=== PATIENT | male | born 1930 | race Caucasian/White ===

== ENCOUNTER 2016-03-08 11:25 | Observation (INO) ==
--- NOTE | 2016-03-08 11:44 | Emergency Department Note ---
Abdominal Pain HPI - General Chief Complaint: Abdominal Pain Stated Complaint: Lower abd pain, Known Hernia Time Seen by Provider: 03/08/16 11:39 Source: patient, other Mode of arrival: ambulatory - History of Present Illness HPI Narrative: This patient claims he said an incarcerated right angle hernia since May. He had a recent stroke and is on Plavix and has been told he can't have surgery. Over the last 3 days he started vomiting. Continues to have pain and swelling in the right inguinal region. Onset (ago): day(s) Consistency: constant Location: RLQ Severity: moderate Quality: cramping Radiation: none - Related Data Home Medications Medication Instructions Recorded Confirmed Acetaminophen [Tylenol] 1,000 mg PO BID 02/27/15 02/27/15 Cholecalciferol (Vitamin D3) 4,000 unit PO DAILY 02/27/15 02/27/15 [Vitamin D3] Cilostazol [Pletal] 100 mg PO BIDAC 02/27/15 02/27/15 Docusate Sodium [Colace] 100 mg PO DAILY 02/27/15 02/27/15 Famotidine [Pepcid] 20 mg PO DAILY 02/27/15 02/27/15 Hydrochlorothiazide 50 mg PO DAILY 02/27/15 02/27/15 Losartan Potassium [Cozaar] 100 mg PO DAILY 02/27/15 02/27/15 Lovastatin 80 mg PO HS 02/27/15 02/27/15 Melatonin [Melatin] 3 mg PO HS 02/27/15 02/27/15 Metoprolol Tartrate [Lopressor] 25 mg PO DAILY 02/27/15 02/27/15 Multivitamin [Multi-Day Vitamins] 1 each PO DAILY 02/27/15 02/27/15 Mv-Mn/FA/Vit K1/Lycop/Lut/Zeax 1 each PO DAILY 02/27/15 02/27/15 [Ocuvite Eye + Multi Tablet] Temazepam [Restoril] 30 mg PO HS 02/27/15 02/27/15 glipiZIDE [Glucotrol Xl] 10 mg PO QAMAC 02/27/15 02/27/15 Previous Rx's Medication Instructions Recorded Clopidogrel [Plavix] 75 mg PO DAILY #30 tab 03/02/15 Allergies Allergy/AdvReac Type Severity Reaction Status Date / Time codeine AdvReac Intermediate Psychosis Verified 03/08/16 11:33 morphine AdvReac Intermediate Psychosis Verified 03/08/16 11:33 Review of Systems Constitutional: Denies: fever, chills Eyes: Denies: eye pain ENT ED: Denies: ear pain Cardiovascular: Denies: chest pain Respiratory: Denies: cough Gastrointestinal: Reports: abdominal pain, nausea, vomiting. Denies: diarrhea Genitourinary: Denies: urgency Musculoskeletal: Denies: back pain Integumentary: Denies: rash Neurological: Denies: headache Psychiatric: Denies: anxiety Abdominal Pain PMH - Past Medical History Medical history: Reports: arthritis, coronary artery disease, CVA, diabetes, other (apnea BiPAP dependent) Surgical history ED: Reports: cataract, coronary bypass (CABG), herniorrhaphy, hip replacement - Social History Alcohol use: Reports: Rarely Drug use: Reports: none Physical Exam - General Limitations: no limitations General appearance: alert - Head Head exam: atraumatic - Eye Eye exam: Present: normal appearance - ENT ENT exam: normal exam - Neck Neck exam: Present: normal inspection - Chest Chest inspection: Present: normal inspection - Respiratory Respiratory exam: Present: normal lung sounds bilaterally - Cardiovascular Cardiovascular exam: Present: regular rate, normal rhythm, normal heart sounds - Abdominal Exam Abdominal exam: Present: soft, tenderness, hernia (incarcerated right inguinal hernia). Absent: distention, guarding, rebound, rigidity Abdominal tenderness: Present: RLQ - Rectal Exam Rectal exam: Present: deferred - Neurological Exam Neurological exam: Present: alert - Psychiatric Psychiatric exam: Present: normal affect - Skin Skin exam: Present: warm, dry Course Vital Signs Temperature 97.9 F 03/08/16 11:26 Pulse Rate 91 H 03/08/16 11:26 Respiratory Rate 16 03/08/16 11:26 Blood Pressure 112/69 03/08/16 11:26 Pulse Oximetry (%) 100 03/08/16 11:26 Temperature 97.9 F 03/08/16 11:26 Pulse Rate 61 03/08/16 13:57 Respiratory Rate 18 03/08/16 13:57 Blood Pressure 119/54 03/08/16 13:57 Pulse Oximetry (%) 96 03/08/16 13:57 Abdominal Pain - Lab Data Lab results reviewed: Yes I reviewed the patient's lab results. Result diagrams: 03/08/16 12:04 03/08/16 12:04 Lab Results 03/08/16 03/08/16 Range/Units 12:04 12:04 WBC 9.8 (4.5-11.0) K/mcL RBC 4.26 L (4.50-5.90) M/mcL Hgb 13.1 L (13.5-16.5) g/dL Hct 40.0 L (41.0-55.0) % MCV 93.8 (80.0-100.0) fL MCH 30.6 (26.0-34.0) pg MCHC 32.6 (31.0-36.0) g/dL RDW 14.2 (11.5-14.5) % Plt Count 311 (140-440) K/mcL MPV 7.9 (7.4-10.4) fL Gran % 76.0 (38.0-78.0) % Lymph % (Auto) 14.7 L (15.5-49.0) % [place] % (Auto) 7.1 (1.0-9.0) % Eos % (Auto) 1.8 (0.0-7.0) % Baso % (Auto) 0.4 (0.0-2.0) % Gran # 7.4 (1.8-8.0) K/mcL Lymph # 1.4 L (1.5-4.8) K/mcL [place] # 0.7 (0.1-0.9) K/mcL Eos # 0.2 (0.0-0.7) K/mcL Baso # 0 (0.0-0.3) K/mcL Sodium 140 (133-145) mmol/L Potassium 3.4 (3.3-5.1) mmol/L Chloride 98 (96-108) mmol/L Carbon Dioxide 27 (22-30) mmol/L Anion Gap 15.0 (8-16) BUN 38 H (8-23) mg/dl Creatinine 1.7 H (0.7-1.2) mg/dl GFR Calculation 36 Glucose 130 H (70-105) mg/dL Calcium 9.3 (8.6-10.4) mg/dl Total Bilirubin 0.6 (0.0-1.0) mg/dL AST 15 (0-37) U/l ALT 10 (0-40) U/l Alkaline Phosphatase 96 (39-117) U/L Total Protein 7.8 (5.9-8.4) gm/dL Albumin 4.3 (3.2-5.2) gm/dL Globulin 3.5 (2.2-3.7) gm/dL Albumin/Globulin Ratio 1.2 (1.0-2.3) - Radiology Data Radiology results reviewed: Yes I reviewed the patient's radiology results. (CT shows an incarcerated right inguinal hernia.) Disposition Clinical Impression: Incarcerated right inguinal hernia Disposition: Xfer As Inpt ([facility]) Condition: Good Referrals: Richard Porter MD [Primary Care Provider] - Time of Disposition: 14:21
[2016-03-08] MEDS ORDERED: 0.9 % SODIUM CHLORIDE 1,000 ML IV ONE (11:57)
[2016-03-08] MEDS ORDERED: ONDANSETRON 4 MG/2 ML VIAL IV ONE (11:57)
[2016-03-08] MEDS ORDERED: HYDROmorphone 2 MG/ML SYRINGE IV PRN ×2 (11:57→14:23)
[2016-03-08 13:10] LABS: Basophils # (Auto) 0 K/mcL (0.0-0.3); Basophils % (Auto) 0.4 % (0.0-2.0); Eosinophils # (Auto) 0.2 K/mcL (0.0-0.7); Eosinophils % (Auto) 1.8 % (0.0-7.0); Lymphocytes # (Auto) 1.4 K/mcL (1.5-4.8); Lymphocytes % (Auto) 14.7 % (15.5-49.0); Mean Cell Volume 93.8 fL (80.0-100.0); Mean Corpuscular HGB Conc 32.6 g/dL (31.0-36.0); Mean Corpuscular Hemoglobin 30.6 pg (26.0-34.0); Monocytes # (Auto) 0.7 K/mcL (0.1-0.9); Monocytes % (Auto) 7.1 % (1.0-9.0); Platelet Count 311 K/mcL (140-440); RBC 4.26 M/mcL (4.50-5.90); Red Cell Distribution Width 14.2 % (11.5-14.5)
[2016-03-08 13:20] LABS: ALT/SGPT 10 U/l (0-40); Albumin 4.3 gm/dL (3.2-5.2); Albumin/Globulin Ratio 1.2 (1.0-2.3); Alkaline Phosphatase 96 U/L (39-117); Blood Urea Nitrogen 38 mg/dl (8-23)
--- NOTE | 2016-03-08 13:30 | Cat Scan Report ---
CLINICAL INFORMATION: Reason for Exam: incarcerated hernia right inguinal FINDINGS: The patient was imaged without oral or intravenous contrast scanning from the diaphragm to the symphysis pubis. Sagittal and coronal reformats were created. There are couple small parenchymal calcifications in the liver. This combination of atherosclerotic plaques and couple granulomata. The liver is otherwise normal in size and homogeneous. No abnormality seen within the spleen, pancreas or adrenals. There is some loss of renal parenchyma in both kidneys. Severe atherosclerotic disease is present throughout the chest abdomen and pelvis. There is ectasia of the mid abdominal aorta. There may be renal artery stenosis torsion left main renal artery. Patient has a large right-sided inguinal hernia. This contains a loop of sigmoid colon. The hernia is 5.6 x 7.7 x 10.0 cm. The wall of the entrapped sigmoid colon measures 1 cm. Inferior to the colon but within the hernia sac there is a moderate amount of fluid. This extends into the right side of the scrotum. Proximal to the hernia the sigmoid colon is not abnormally dilated.. The small bowel is normal in caliber. No intraperitoneal ascites is present. Is no evidence of mass or adenopathy. The patient has a left hip prosthesis creating artifact. Above the prosthetic acetabular cup there is a intramedullary soft tissue lesion which is eroded through the medial wall of the tissue into the left pelvic sidewall. The erosion of the ischium is unchanged from prior x-ray done on 06/25/15. The erosion through the medial cortex was not apparent in the plain radiograph. Impression: Large right inguinal hernia which contains an entrapped an incarcerated segment of sigmoid colon Erosion in the left ischium, contiguous with the prosthetic acetabular cup. This is probably a foreign body reaction to the prosthesis rather than a neoplasm or infection Severe atherosclerotic disease involving the coronary arteries, aorta and visceral arteries throughout the abdomen and pelvis IMPRESSION: Interpreted and Authenticated by: Roge Cisse 03/08/16
[2016-03-08 14:57] LABS: Appearance,Urine CLEAR; Bacteria,Urine 0 /hpf (0); Bilirubin,Urine NEG (NEG); Color,Urine YELLOW; Glucose,Urine (UA) NEGATIVE (NEG); Leukocyte Esterase,Urine NEG /uL (NEG); Mucus,Urine FEW /hpf (0); Nitrate,Urine NEG (NEG); Protein,Urine NEG (NEG); Specific Gravity,Urine 1.018 (1.000-1.035); Urine Blood 0.03 mg/dL (<0.03); Urine Hyaline Cast 3 /lpf (0-2); Urine RBC 2 /hpf (0-1); Urine Squamous Epithelial Cell < 1 /hpf (0-4); Urine WBC 1 /hpf (0-4); Urobilinogen,Urine NEG (NEG)
[2016-03-08] MEDS ORDERED: DEXTROSE 50% 50 ML VIAL IV PRN (17:34)
[2016-03-08] MEDS ORDERED: HEPARIN 5,000 UNIT/ML VIAL SQ ONE (17:41)
--- NOTE | 2016-03-08 17:41 | Internal Medicine Consult Note ---
Medical - CN: HPI - Data of Consult Consult date: 03/08/16 Requesting Physician: [Frank Attending Provider] Primary Care Provider: [Frank Prim Care Provider] Family Provider: [Frank Family Provider] - Consult Narrative Reason for consult: Medical Management/ Laura OP Management. History of present illness: Mr. Jack is a 86 year old male who has multiple medical issues, h/o inguinal hernia, presents to the ER with pain in the abdomen, right lower quadrant x 2 days, associated with vomiting x 3 times. Patient pain is moderate to severe, throbbing in nature, associated with vomiting, movement and touch makes it worse, rest and pain meds help. The patient in the ER underwent CT abdomen and pelvis which revewaled a large inguinal hernia, and incarcerated sigmoid colon. Patient is scheduled for surgery tomorrow, in light of his extensive medical comorbidities, I was asked to consult and co mange his medical comorbidities. Pt had CVA 1 yr ago, after which his functional condition declined, he is walking approximately 1 to 1.5 miles intermittently on a elipitical trying to get back in shape. He denies any chest pain, shortness of breath, palpitations or syncope. CC: [_Reg Attending Provider] - Constitutional Constitutional: Present: fatigue, weakness. Absent: chills, fever(s) - EENT Eyes: Absent: blurry vision, change in vision Nose, mouth and throat: Absent: bleeding gums, dizziness - Cardiovascular Cardiovascular: Absent: chest pain at rest, chest pain with activity, dyspnea on exertion, edema, palpatations, paroxysmal nocturnal dyspnea, syncope - Respiratory Respiratory: Absent: cough, dyspnea on exertion, wheezing - Gastrointestinal Gastrointestinal: Present: abdominal pain, constipation, nausea, vomiting. Absent: diarrhea - Genitourinary Additional comments: no urinary complaints reported - Musculoskeletal Musculoskeletal: Absent: joint swelling - Integumentary Integumentary: Absent: wounds, jaundice - Neurological Neurological: Absent: disequilibrium, headache(s), syncope - Endocrine Endocrine: Absent: polydipsia, polyphagia, polyuria - Hematologic/Lymphatic Hematologic/Lymphatic: Present: easy bleeding, easy bruising - Allergic/Immunologic Allergic/Immunologic: Absent: uticaria, wheezing Medical - CN: PMH Medical history: PMH CVA 1 yr ago CAD PVD DM HLD HTN Surgical history: CABG 1996 5 vessel Family history: reviewed and not pertinent Social history: lives with , ex smoker no etoh no drugs. Medical - CN: Meds Home Medications Medication Instructions Recorded Confirmed Type Acetaminophen [Tylenol] 1,000 mg PO BID 02/27/15 03/08/16 History Cholecalciferol (Vitamin D3) 2,000 unit PO DAILY 02/27/15 03/08/16 History [Vitamin D3] Cilostazol [Pletal] 100 mg PO BIDAC 02/27/15 03/08/16 History Docusate Sodium [Colace] 100 mg PO DAILY 02/27/15 03/08/16 History Famotidine [Pepcid] 20 mg PO DAILY 02/27/15 03/08/16 History Hydrochlorothiazide 50 mg PO DAILY 02/27/15 03/08/16 History Lovastatin 40 mg PO ACB 02/27/15 03/08/16 History Metoprolol Tartrate [Lopressor] 25 mg PO DAILY 02/27/15 03/08/16 History Multivitamin [Multi-Day Vitamins] 1 each PO DAILY 02/27/15 03/08/16 History Mv-Mn/FA/Vit K1/Lycop/Lut/Zeax 1 each PO DAILY 02/27/15 03/08/16 History [Ocuvite Eye + Multi Tablet] glipiZIDE [Glucotrol Xl] 5 mg PO QAMAC 02/27/15 03/08/16 History Allergies Allergy/AdvReac Type Severity Reaction Status Date / Time codeine AdvReac Intermediate Psychosis Verified 03/08/16 11:33 morphine AdvReac Intermediate Psychosis Verified 03/08/16 11:33 Medical - CN: Exam - Constitutional Vitals: Temp Pulse Resp BP Pulse Ox 98.3 F 64 16 154/73 95 03/08/16 16:00 03/08/16 16:00 03/08/16 16:00 03/08/16 16:00 03/08/16 16:00 Medical - CN: Result - Labs CBC & Chem 7: 03/08/16 12:04 03/08/16 12:04 Medical - CN: A/P (1) Preoperative cardiovascular examination Status: Acute Assessment and plan: given extensive comorbidities high risk for surgery explained same to the patient given the urgent nature of surgery, unfortunately we will have to accept the risks ON plavix and pletal, both of which are anti platlet agents, which will increase risk of bleeding during the procedure. Transfuse as needed. ECG/ X ray chest awaited, Echo pending, (2) Diabetes mellitus Status: Acute Assessment and plan: hold oral DM meds start sliding scale insulin given his poor intake his glucose seems to be fairly well controlled Will need good hydration (3) Hypertension Status: Acute Assessment and plan: BP stable continue beta blockers for now continue kiley and hctz tonight, hold for tomorrow. (4) Hyperlipidemia Status: Acute Assessment and plan: continue statin. (5) Inguinal hernia Status: Acute Assessment and plan: incarcerated management as per surgery on [facility].
[2016-03-08] MEDS ORDERED: amLODIPine 5 MG TABLET PO PRN (17:59)
--- NOTE | 2016-03-08 18:01 | General Surg History&Physical ---
History of Present Illness Patient information: Note initiated : 03/08/16 at 5:57 pm Service Date, if different from initiated Date: [] Patient: Rj Jack 86 y/o M admitted on 03/08/16 for Lower abd pain, Known Hernia. Chief Complaint: [] HPI: Mr. Jack is a 86 year old male with with history of an incarcerated right inguinal hernia with partial colonic obstruction. he states that he had a fall in May 2015. He had some right groin pain at that time and he gradually noted swelling in his right groin. The swelling has progressd. He was seen by another surgeon and told that he could not have a hernia repair because he was on Plavix and aspirin. He had onset of more pain on yesterday followed by nausea vomiting and more abdominal pain. He is seen in the emergency room and was noted to have a tightly incarcerated hernia with partial colonic obstruction. He is admitted and will have hernia repair tomorrow. Review of Systems - Constitutional fatigue, frequent falls, weakness - EENT Nose, mouth and throat: abnormal hearing, disequilibrium - Cardiovascular dyspnea on exertion, no chest pain, no chest pain with activity, no palpatations , no rapid heart rate - Respiratory dyspnea on exertion - Gastrointestinal abdominal pain, cramping, nausea, vomiting - Genitourinary urinary frequency, urinary hesitancy, urinary incontinence - Musculoskeletal abnormal gait, arthralgias, joint swelling, muscle cramps, myalgias, stiffness - Integumentary no bleeding lesions, no changing lesions, no new lesions, no pruritus, no rash - Neurological abnormal gait, confusion, no focal weakness, no lack of coordination - Psychiatric no anxiety, no depression - Endocrine no cold intolerance, no excessive sweating, no palpitations - Hematologic/Lymphatic easy bruising, no easy bleeding, no lymphadenopathy - Allergic/Immunologic no tongue swelling, no throat swelling, no uticaria, no wheezing, no lip swelling Past History Past medical history: CORONARY ARTERY DISEASE 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 DISEASE cEREBROVASCULAR DISEASE hYPERTENSION dIABETES MELLITUS Past surgical history: CORONARY ARTERY BYPASS GRAFT 5 rIGHT TOTAL HIP ARTHROPLASTY Past social history: NEGATIVE TOBACCO USE nEGATIVE ALCOHOL USE nEGATIVE DRUG USE Medications and Allergies Home Medications Medication Instructions Recorded Confirmed Type Acetaminophen [Tylenol] 1,000 mg PO BID 02/27/15 03/08/16 History Cholecalciferol (Vitamin D3) 2,000 unit PO DAILY 02/27/15 03/08/16 History [Vitamin D3] Cilostazol [Pletal] 100 mg PO BIDAC 02/27/15 03/08/16 History Docusate Sodium [Colace] 100 mg PO DAILY 02/27/15 03/08/16 History Famotidine [Pepcid] 20 mg PO DAILY 02/27/15 03/08/16 History Hydrochlorothiazide 50 mg PO DAILY 02/27/15 03/08/16 History Lovastatin 40 mg PO ACB 02/27/15 03/08/16 History Metoprolol Tartrate [Lopressor] 25 mg PO DAILY 02/27/15 03/08/16 History Multivitamin [Multi-Day Vitamins] 1 each PO DAILY 02/27/15 03/08/16 History Mv-Mn/FA/Vit K1/Lycop/Lut/Zeax 1 each PO DAILY 02/27/15 03/08/16 History [Ocuvite Eye + Multi Tablet] glipiZIDE [Glucotrol Xl] 5 mg PO QAMAC 02/27/15 03/08/16 History Allergies Allergy/AdvReac Type Severity Reaction Status Date / Time codeine AdvReac Intermediate Psychosis Verified 03/08/16 11:33 morphine AdvReac Intermediate Psychosis Verified 03/08/16 11:33 Exam Temp Pulse Resp BP Pulse Ox 98.3 F 64 16 154/73 95 03/08/16 16:00 03/08/16 16:00 03/08/16 16:00 03/08/16 16:00 03/08/16 16:00 - General physical appearance well developed, well nourished, moderate distress, moderate pain, chronically ill - Eyes PERRL, normal ocular movement - ENT normal pinna, normal nares, normal mucosa, no hearing loss, no congestion, decreased hearing - Head Head exam IM: Present: atraumatic, normocephalic - Neck no masses, no bruits, trachea midline, no lymphadectomy, no venous distension - Cardiovascular Cardiovascular exam IM: Present: normal rate and rhythm, RRR, +S1, +S2. Absent : JVD - Respiratory normal expansion, normal respiratory effort, clear to percussion, clear to auscultation - Abdomen Abdomen: Present: soft, tender (TENDERNESS IN RIGHT LOWER QUADRANT EXTENDING TO THE RIGHT INGUINAL AREA), bowel sounds Hernia: Present: none, inguinal (LARGE INCARCERATED RIGHT INGUINAL HERNIA CONTAININGCOLON SEGMENT) - Genitourinary Present: normal penis with no external lesions - Integumentary Present: no rash, no growths, no abnormal pigmentation - Neurologic Present: normal coordination, normal sensation, memory loss - Musculoskeletal Present: normal gait, normal posture, other (BILATERAL STASIS DERMATITIS) - Psychiatric Present: oriented to time, oriented to person, oriented to place, speech is normal, memory intact Assessment and Plan (1) Incarcerated right inguinal hernia PATIENT WILL HAVE URGENT REPAIR OF HIS RIGHT INGUINAL HERNIA TOMORROW. hE IS ADVISED THAT HE WI HAVE SIGNIFICANT ECCHYMOSIS BECAUSE OF HIS USE OF pLAVIX AND ASPIRIN. tHIS SHOULD RESOLVE IN 10-14 DAYS. Status: Acute (2) Coronary artery disease PATIENT WILL HAVE REPEAT ECHOCARDIOGRAM FOR EVALUATION OF HIS CARDIOMYOPATHY. hIS pLAVIX AND ASPIRIN WILL NOT BE DISCONTINUED Status: Acute Qualifiers: Associated angina: without angina (3) Diabetes mellitus Status: Acute Qualifiers: Diabetes mellitus type: type 2 Diabetes mellitus complication status: without complication (4) Hypertension Status: Acute (5) CVA (cerebral vascular accident) Status: Resolved
--- NOTE | 2016-03-08 18:32 | XRay Report ---
HISTORY: Reason for Exam:preop FINDINGS: Right diaphragm is moderately elevated. This is a chronic stable finding. The lungs are clear. The heart size and pulmonary vascular normal. Sternal wires are present and there is a metal plate in the lower cervical spine following fusion. There has been no significant change since 09/30/10. IMPRESSION: Normal exam Interpreted and Authenticated by: Roge Cisse 03/08/16
[2016-03-08] MEDS: 0.9 % SODIUM CHLORIDE 1,000 ML IV SCH (19:37)
[2016-03-08] MEDS: PIPERACILLIN SODIUM/TAZOBACTAM 2.25 GM in DEXTROSE 5% IN WATER 50 ML IV SCH ×2 (19:40→23:52)
[2016-03-08] MEDS ORDERED: SIMVASTATIN 20 MG TABLET PO SCH (21:00)
[2016-03-08] MEDS ORDERED: FAMOTIDINE/PF 20 MG/2 ML VIAL IV SCH (21:00)
[2016-03-08] MEDS: INSULIN LISPRO 1 UNIT/0.01 ML UNIT SQ SCH (21:23)
[2016-03-09] MEDS: PIPERACILLIN SODIUM/TAZOBACTAM 2.25 GM in DEXTROSE 5% IN WATER 50 ML IV SCH ×4 (06:26→23:45)
[2016-03-09] MEDS: INSULIN LISPRO 1 UNIT/0.01 ML UNIT SQ SCH ×3 (08:34→20:51)
[2016-03-09] MEDS ORDERED: CLOPIDOGREL 75 MG TABLET PO SCH (09:00)
[2016-03-09] MEDS ORDERED: DEXTROSE 5%-1/2NS 1,000 ML IV SCH (09:30)
--- NOTE | 2016-03-09 10:31 | Echocardiogram Report ---
ECHOCARDIOGRAM: 2-D and M-mode echocardiography with cardiac Doppler and color flow imaging were performed with a [employer] MX. Indication is pre-op. Overall size of the four cardiac chambers and aortic root appeared normal as did LV wall thickness. The ventricular septal motion appeared dyssynergic. LV systolic performance otherwise appeared normal. Estimated ejection fraction is 50-55%, low normal. The aortic valve appeared epmhady-tw-espoqzvemd calcified. Valve opening appeared adequate and there was no evidence for aortic stenosis by Doppler interrogation. Aortic regurgitation, probably mild (1+), was demonstrated. The mitral leaflets displayed minimal nonspecific thickening. Valve motion appeared normal. Doppler interrogation of LV inflow disclosed prolonged early diastolic deceleration time and ''A'' wave dominance indicating delayed LV relaxation. Mitral regurgitation, probably mild (1+), was demonstrated. Pulmonary venous interrogation disclosed ''D'' wave dominance indicating elevated pulmonary wedge pressure. The pulmonic valve was not visualized. Pulmonary artery acceleration time appeared normal. There was no evidence for pulmonic stenosis or pulmonic regurgitation. Tricuspid regurgitation, probably mild (1+), was noted. No intracardiac shunting was appreciated. There was no evidence for pericardial effusion. The IVC was of normal diameter and showed normal respiratory variation. Calculated estimate of PA systolic pressure was normal at 25 mmHg. Sinus rhythm, rate 62, with IVCD was present. CONCLUSION: [id number]-[id number] aortic leaflet calcification with adequate valve opening and aortic regurgitation, probably mild (1+). Ventricular septal dyssynergy as can be seen with left-sided IVCD and overall low normal LV systolic performance. Mitral regurgitation, probably mild (1+). Possible elevated pulmonary wedge pressure. Since previous study 02/27/15 there are probably no major changes. (See accompanying M-mode and Doppler reports for quantitation.) ECHOCARDIOGRAPHY M-MODE CALCULATIONS: HT: 70'' WT: 155 BSA: 1.87 m2 NORMALS AORTA: AORTIC ROOT 3.3 2.0-3.7 cm LEFT ATRIUM 3.3 1.9-4.0 cm MITRAL VALVE: EXCURSION 1.6 1.9-2.7 cm EPSS 0.6 <0.5 cm LT VENTRICLE: LVID (ED) 4.5 3.5-5.7 cm LVID (ES) -- SEPTAL THICKNESS 1.0 0.6-1.1 cm SEPTAL EXCURSION -- 0.3-0.8 cm LVPW THICKNESS 0.9 0.6-1.1 cm LVPW EXCURSION 0.9 0.9-1.4 cm MINOR AXIS FS -- 25%-40% RT VENTRICLE: RVID (ED) -- 0.9-2.6 cm(up to 3cm if LLD) QUALITATIVE DOPPLER FLOW STUDIES MITRAL VALVE MR, probably mild (1+). AORTIC VALVE AR, probably mild (1+). TRICUSPID VALVE TR, probably mild (1+). PULMONIC VALVE -- QUANTITATIVE DOPPLER FLOW STUDIES SAMPLE SITES VELOCITIES PEAK PRESSURE VALVE AREA and/or VALVE WINDOW (PEAK,M/SEC) DROP (GRADIENT) PRESSURE HALF-TIME MV (Diastole) 0.75 (E) 0.8 (A) MV (Systole) 5.2 AO (Diastole) 3.5 638 msec AO (Systole) 1.5 TV (Systole) 2.2 PV (Systole) 0.8 PV (Diastole) -- LWG:branden Job ID: [id number] Doc ID: [id number] Maximino Cho MD
--- NOTE | 2016-03-09 10:51 | Internal Med Progress Note ---
Medical - PN: Subj Patient information: Note initiated : 03/09/16 at 10:47 am Service Date, if different from initiated Date: [] Patient: Rj Jack 86 y/o M admitted on 03/08/16 for Lower abd pain, Known Hernia. Chief Complaint: [] Interval history: The patient seen examined today No acute overnight events, Labs/ x ray/ ecg/ echo findings reviwed, no changes in plan The patient is NPO for possible surgery this morning or early afternoon. i reviwed his case again with the patient, his and today also with the daughter, they are aware of the high risk of the surgery but also the need to undergo the procedure. They are aware that we do not have a healthcare architect on campus and if patient were to develop a cardiovascular complication he would have to be tranferred to another facility. Pertinent ROS: no chest pain no shortness of breath, no palpitations, no headache or dizziness. Still has abdominal pain, but tolerable - Constitutional Vitals: Vital Signs Temp Pulse Resp BP Pulse Ox 98.1 F 61 14 149/84 96 03/09/16 07:08 03/09/16 07:08 03/09/16 07:08 03/09/16 07:08 03/09/16 07:23 Period Temp Pulse Resp BP Sys/Gonzalez Pulse Ox Last 24 Hr 97.3 F-98.5 F 61-64 14-16 141-154/73-84 93-96 Intake and Output 03/08/16 03/09/16 03/09/16 21:59 05:59 13:59 Intake Total 320 / 1320 50 / 50 Output Total 275 / 275 375 / 375 Balance 45 / 1045 -325 / -325 Weight 155 lb 8 oz Intake & Output: Intake & Output 03/08/16 03/09/16 03/09/16 21:59 05:59 13:59 Intake Total 320 / 1320 50 / 50 Output Total 275 / 275 375 / 375 Balance 45 / 1045 -325 / -325 Weight 155 lb 8 oz Intake: IV 50 / 50 50 / 50 Dextrose 5% in Water 50 50 / 50 50 / 50 ml @ 100 mls/hr IV Q6 KATELIN with Zosyn 2.25 gm Rx#: [id number] Oral 270 / 270 0 / 0 Output: Void Amount 275 / 275 375 / 375 General appearance: cooperative, no acute distress - Head Head exam: Present: atraumatic, normal inspection, normocephalic - Eye Eye exam: Present: PERRL. Absent: periorbital swelling, periorbital tenderness , scleral icterus - Respiratory Respiratory exam: Present: normal respiratory exam. Absent: accessory muscle use, rhonchi, wheezes - Cardiovascular Cardiovascular exam: Present: normal rate and rhythm, +S1, +S2 - GI/Abdominal GI/Abdominal exam: Present: diminished bowel sounds - Neurological Exam Neurological exam: Present: alert, CN II-XII intact, oriented X3. Absent: motor sensory deficit - Skin Skin exam: Present: warm Medical - PN: Obj Da - Labs CBC & Chem 7: 03/08/16 12:04 03/08/16 12:04 Meds: Medications Amlodipine Besylate (Norvasc) 2.5 mg PO Q6 PRN PRN Reason: Hypertension Clopidogrel Bisulfate (Plavix) 75 mg PO DAILY [facility] Last Admin: 03/09/16 09:06 Dose: Not Given Dextrose (Dextrose 50%) 0 ml IV UD PRN PRN Reason: Hypoglycemia Famotidine (Pepcid) 20 mg IV HS [facility] Last Admin: 03/08/16 21:19 Dose: 20 mg Piperacillin Sod/Tazobactam (Sod 2.25 gm/ Dextrose) 50 mls @ 100 mls/hr IV Q6 [facility] Last Admin: 03/09/16 06:26 Dose: 100 mls/hr Sodium Chloride (Sodium Chloride 0.9%) 1,000 mls @ 50 mls/hr IV .Q20H [facility] Last Admin: 03/08/16 19:37 Dose: 50 mls/hr Dextrose/Sodium Chloride (Dextrose 5%-1/2ns Iv Solution) 1,000 mls @ 75 mls/hr IV .[id number] [facility] Last Admin: 03/09/16 09:28 Dose: 75 mls/hr Insulin Human Lispro (Humalog) 0 unit SQ Q6 [facility] PRN Reason: Protocol Metoprolol Succinate (Toprol Xl) 25 mg PO DAILY [facility] Simvastatin (Zocor) 20 mg PO [facility] Last Admin: 03/08/16 21:20 Dose: 20 mg Medical - PN: A/P - Time Spent With Patient Total time spent is greater than 50% in coordination of care (as documented) at patient's floor/unit and/or counseling patient: (1) Preoperative cardiovascular examination Status: Acute Current Visit: Yes (2) Diabetes mellitus Status: Acute Assessment and plan: NPO for surgery FS was low this AM 77, st arted on d5. 1/2 NS for now at 75cc / hr will need to be well hydrated for surgery. MOnitor fs q 6 hrs for now. Current Visit: Yes (3) Hypertension Status: Acute Assessment and plan: BP stable, monitor. Current Visit: Yes (4) Inguinal hernia Status: Acute Assessment and plan: strangulated, surgery planned today. Current Visit: No Medical - PN: Qual - VTE Deep Vein Thrombosis/Pulmonary Embolism Present on Admission: No
[2016-03-09] MEDS ORDERED: ONDANSETRON 4 MG/2 ML VIAL IV ONE (11:05)
[2016-03-09] MEDS ORDERED: LIDOCAINE HCL/PF 100 MG/5 ML SYRINGE IV ONE (11:05)
[2016-03-09] MEDS ORDERED: DEXAMETHASONE 10 MG/ML VIAL IV ONE (11:05)
[2016-03-09] MEDS ORDERED: MIDAZOLAM 5 MG/5 ML VIAL IV ONE (11:05)
[2016-03-09] MEDS ORDERED: PROPOFOL 200 MG/20 ML VIAL IV ONE (11:05)
[2016-03-09] MEDS ORDERED: fentaNYL 250 MCG/5 ML VIAL IV ONE (11:05)
[2016-03-09] MEDS ORDERED: ROCURONIUM 10 MG/ML ML IV ONE (11:05)
[2016-03-09] MEDS ORDERED: ROPIVACAINE HCL/PF 30 ML VIAL IJ ONE (11:05)
[2016-03-09] MEDS ORDERED: BACITRACIN 50,000 UNIT VIAL IR ONE (11:34)
[2016-03-09] MEDS ORDERED: NALOXONE HCL 0.4 MG/ML VIAL IV PRN (11:55)
[2016-03-09] MEDS ORDERED: ONDANSETRON 4 MG/2 ML VIAL IV PRN (11:55)
[2016-03-09] MEDS ORDERED: fentaNYL 100 MCG/2 ML VIAL IV PRN (11:55)
[2016-03-09] MEDS ORDERED: HYDROmorphone 2 MG/ML SYRINGE IV PRN ×3 (11:55→14:33)
[2016-03-09] MEDS ORDERED: IPRATROPIUM/ALBUTEROL 3 ML AMPUL.NEB NEB PRN (11:55)
[2016-03-09] MEDS ORDERED: METOCLOPRAMIDE 10 MG/2 ML VIAL IV PRN (11:55)
[2016-03-09] MEDS ORDERED: LACTATED RINGERS 250 ML IV PRN (11:55)
[2016-03-09] MEDS ORDERED: FLUMAZENIL 0.1 MG/ML ML IV PRN (11:55)
[2016-03-09] MEDS ORDERED: PROMETHAZINE 25 MG/ML VIAL IV PRN (11:55)
[2016-03-09] MEDS ORDERED: diphenhydrAMINE 50 MG/ML VIAL IV PRN (11:55)
[2016-03-09] MEDS ORDERED: ePHEDrine 50 MG/ML AMPUL IV PRN (11:55)
[2016-03-09] MEDS ORDERED: BENZOCAINE/MENTHOL 1 LOZENGE PO PRN (11:55)
[2016-03-09] MEDS ORDERED: MEPERIDINE 25 MG/ML SYRINGE IV PRN (11:55)
[2016-03-09] MEDS ORDERED: LACTATED RINGERS 1,000 ML IV SCH (12:00)
[2016-03-09] MEDS ORDERED: INSULIN LISPRO 1 UNIT/0.01 ML UNIT SQ SCH ×2 (12:00→18:00)
--- NOTE | 2016-03-09 12:30 | Brief Operative Note ---
Date of procedure: 03/09/16 Pre-op diagnosis: incarcerated right inguinal hernia Post-op diagnosis: other (incarcerated right inguinal hernia) Procedure: RIGHT INGUINAL HERNIA REPAIR WITH MESH Grafts/Implants: Yes (SURGIMESH) Anesthesia: GLMA Findings: LARGE INCARCERATED HERNIA WITH LARGE INDIRECT SAC AND LARGE LIPOMA OF THE CORD Complications: none Surgeon: Chrissy Rodriguez Estimated blood loss (cc): 10 Specimens Removed/Pathology: none sent Condition: stable Disposition: PACU
[2016-03-09] MEDS ORDERED: oxyCODONE/APAP 5/325MG TABLET PO PRN ×2 (12:37→14:33)
[2016-03-09] MEDS ORDERED: DEXTROSE 50% 50 ML VIAL IV PRN ×2 (14:33→15:37)
[2016-03-09] MEDS ORDERED: amLODIPine 5 MG TABLET PO PRN (14:33)
[2016-03-09] MEDS ORDERED: 0.9 % SODIUM CHLORIDE 1,000 ML IV SCH (14:33)
[2016-03-09] MEDS: 0.9 % SODIUM CHLORIDE 1,000 ML IV SCH (14:40)
[2016-03-09] MEDS: DEXTROSE 5%-1/2NS 1,000 ML IV SCH (14:51)
[2016-03-09 15:27] LABS: Basophils # (Auto) 0 K/mcL (0.0-0.3); Basophils % (Auto) 0.1 % (0.0-2.0); Eosinophils # (Auto) 0 K/mcL (0.0-0.7); Eosinophils % (Auto) 0.4 % (0.0-7.0); Granulocytes % (Auto) 91.5 % (38.0-78.0); Lymphocytes # (Auto) 0.7 K/mcL (1.5-4.8); Mean Cell Volume 94.2 fL (80.0-100.0); Mean Corpuscular HGB Conc 32.8 g/dL (31.0-36.0); Mean Corpuscular Hemoglobin 30.8 pg (26.0-34.0); Monocytes # (Auto) 0.2 K/mcL (0.1-0.9); Platelet Count 244 K/mcL (140-440); RBC 3.82 M/mcL (4.50-5.90); Red Cell Distribution Width 13.7 % (11.5-14.5)
[2016-03-09] MEDS: METOPROLOL SUCCINATE 25 MG TAB.XL.24H PO SCH (15:35)
[2016-03-09 15:39] LABS: Magnesium 1.7 mg/dL (1.6-2.5)
[2016-03-09 15:46] LABS: Blood Urea Nitrogen 29 mg/dl (8-23)
[2016-03-09] MEDS ORDERED: POTASSIUM CHLORIDE 40 MEQ in DEXTROSE 5% IN WATER 500 ML IV ONE (16:00)
[2016-03-09] MEDS ORDERED: MAGNESIUM SULFATE 2 GM/50 ML BAG IV ONE (16:00)
[2016-03-09] MEDS ORDERED: METOPROLOL SUCCINATE 25 MG TAB.XL.24H PO SCH (17:34)
[2016-03-09] MEDS ORDERED: FAMOTIDINE/PF 20 MG/2 ML VIAL IV SCH (21:00)
[2016-03-09] MEDS ORDERED: SIMVASTATIN 20 MG TABLET PO SCH (21:00)
[2016-03-10] MEDS: DEXTROSE 5%-1/2NS 1,000 ML IV SCH (05:27)
[2016-03-10] MEDS: PIPERACILLIN SODIUM/TAZOBACTAM 2.25 GM in DEXTROSE 5% IN WATER 50 ML IV SCH ×2 (06:17→12:54)
[2016-03-10 06:45] LABS: Basophils # (Auto) 0 K/mcL (0.0-0.3); Basophils % (Auto) 0.1 % (0.0-2.0); Eosinophils # (Auto) 0.1 K/mcL (0.0-0.7); Granulocytes % (Auto) 81.1 % (38.0-78.0); Lymphocytes # (Auto) 0.8 K/mcL (1.5-4.8); Lymphocytes % (Auto) 6.8 % (15.5-49.0); Mean Corpuscular HGB Conc 32.3 g/dL (31.0-36.0); Mean Corpuscular Hemoglobin 30.7 pg (26.0-34.0); Monocytes # (Auto) 1.3 K/mcL (0.1-0.9); Platelet Count 235 K/mcL (140-440); RBC 3.56 M/mcL (4.50-5.90); Red Cell Distribution Width 14.1 % (11.5-14.5)
[2016-03-10 07:48] LABS: ALT/SGPT 7 U/l (0-40); Albumin 3.5 gm/dL (3.2-5.2); Albumin/Globulin Ratio 1.5 (1.0-2.3); Alkaline Phosphatase 79 U/L (39-117); Bilirubin,Direct < 0.2 mg/dL (0.0-0.3); Blood Urea Nitrogen 25 mg/dl (8-23); Gamma Glutamyl Transpeptidase 9 U/L (8-61); Phosphorous 2.5 mg/dL (2.7-4.5); Uric Acid 3.9 mg/dL (2.5-8.0)
[2016-03-10] MEDS: INSULIN LISPRO 1 UNIT/0.01 ML UNIT SQ SCH ×2 (08:03→12:54)
[2016-03-10] MEDS: METOPROLOL SUCCINATE 25 MG TAB.XL.24H PO SCH (08:11)
[2016-03-10] MEDS ORDERED: CLOPIDOGREL 75 MG TABLET PO SCH (09:00)
--- NOTE | 2016-03-10 11:25 | Internal Med Progress Note ---
Medical - PN: Subj Patient information: Note initiated : 03/10/16 at 11:23 am Service Date, if different from initiated Date: [] Patient: Rj Jack 86 y/o M admitted on 03/08/16 for Lower Abd Pain/ Incarcerated Rt Inguinal Hernia . Chief Complaint: [] Interval history: patient seen examined, had some tachycardia post op K was low at 3.3, replaced, Mg low at 1.7 replaced, Goal is to keep K > 4.0 and Mg around 2.0 as much as possible to decrease the arrythmogencity of the cardiac muscles The patient otherwise notes besides frequent urination at night, he ddid not have any issues Pain is rated at 2 by the patient He was able to tolerate PO diet, Pertinent ROS: no cp, no sob no cough no headache Abdominal pain post surgical mild No nausea or vomiting has not passed gas or bowels yet. - Constitutional Vitals: Vital Signs Temp Pulse Resp BP Pulse Ox 98.5 F 64 16 154/70 98 03/09/16 23:37 03/10/16 08:00 03/10/16 03:26 03/10/16 03:26 03/10/16 03:26 Period Temp Pulse Resp BP Sys/Gonzalez Pulse Ox Last 24 Hr 97.1 F-98.5 F 56-89 13-20 120-173/50-88 91-99 Intake and Output 03/09/16 03/10/16 03/10/16 21:59 05:59 13:59 Intake Total 1850 / 1850 1410 / 1410 245 / 245 Output Total 1125 / 1125 850 / 850 150 / 150 Balance 725 / 725 560 / 560 95 / 95 Weight 165 lb 6.4 oz Intake & Output: Intake & Output 03/09/16 03/10/16 03/10/16 21:59 05:59 13:59 Intake Total 1850 / 1850 1410 / 1410 245 / 245 Output Total 1125 / 1125 850 / 850 150 / 150 Balance 725 / 725 560 / 560 95 / 95 Weight 165 lb 6.4 oz Intake: IV 1490 / 1490 1050 / 1050 245 / 245 Sodium Chloride 0.9% 1, 1000 / 1000 000 ml @ 50 mls/hr IV . Q20H [facility] Rx#:[id number] Dextrose 5%-1/2Ns IV 390 / 390 1000 / 1000 195 / 195 Solution 1,000 ml @ 75 mls/hr IV .[id number] [facility]AT[facility] Rx #:[id number] Dextrose 5% in Water 50 50 / 50 50 / 50 50 / 50 ml @ 100 mls/hr IV Q6 KATELIN with Zosyn 2.25 gm Rx#: [id number] Oral 360 / 360 360 / 360 Output: Urine Catheter Amount 150 / 150 Void Amount 1125 / 1125 850 / 850 Other: Meal Dinner Percent of Meal Consumed 100% Feeding Ability Assist with Tray Set Up # Bowel Movements 0 General appearance: cooperative, no acute distress - Eye Eye exam: Present: normal appearance, PERRL. Absent: periorbital swelling, scleral icterus - Neck Neck exam: Present: normal inspection - Respiratory Respiratory exam: Present: normal respiratory exam. Absent: respiratory distress, rhonchi, wheezes - Cardiovascular Cardiovascular exam: Present: normal rate and rhythm, +S1, +S2 - Neurological Exam Neurological exam: Present: CN II-XII intact. Absent: motor sensory deficit - Psychiatric Psychiatric exam: Absent: agitated, anxious Medical - PN: Obj Da - Labs CBC & Chem 7: 03/10/16 04:50 03/10/16 04:50 Labs: Abnormal Lab Results 03/10/16 03/10/16 03/09/16 04:50 04:50 14:50 WBC 12.0 H RBC 3.56 L 3.82 L Hgb 10.9 L 11.8 L Hct 33.8 L 36.0 L Gran % 81.1 H 91.5 H Lymph % (Auto) 6.8 L 6.0 L [place] % (Auto) 11.0 H Gran # 9.7 H 9.9 H Lymph # 0.8 L 0.7 L [place] # 1.3 H BUN 25 H Creatinine 1.4 H Glucose 183 H Calcium 8.5 L Phosphorus 2.5 L Total Protein 5.8 L 03/09/16 14:50 WBC RBC Hgb Hct Gran % Lymph % (Auto) [place] % (Auto) Gran # Lymph # [place] # BUN 29 H Creatinine 1.6 H Glucose 113 H Calcium 8.4 L Phosphorus Total Protein Meds: Medications Amlodipine Besylate (Norvasc) 2.5 mg PO Q6 PRN PRN Reason: Hypertension Cilostazol (Pletal) 100 mg PO BIDAC [facility] Clopidogrel Bisulfate (Plavix) 75 mg PO DAILY [facility] Last Admin: 03/10/16 08:11 Dose: 75 mg Dextrose (Dextrose 50%) 0 ml IV UD PRN PRN Reason: Hypoglycemia Dextrose (Dextrose 50%) 0 ml IV UD PRN PRN Reason: Hypoglycemia Diagnostic Test (Pha) (Accu-Chek) 1 each FS ACHS [facility] Last Admin: 03/10/16 08:02 Dose: 1 each Famotidine (Pepcid) 20 mg IV HS [facility] Last Admin: 03/09/16 20:40 Dose: 20 mg Hydromorphone HCl (Dilaudid) 1 mg IV Q2HP PRN PRN Reason: Pain Last Admin: 03/09/16 17:05 Dose: 1 mg Dextrose/Sodium Chloride (Dextrose 5%-1/2ns Iv Solution) 1,000 mls @ 75 mls/hr IV .[id number] [facility] Last Infusion: 03/10/16 08:03 Dose: 20 mls/hr Piperacillin Sod/Tazobactam (Sod 2.25 gm/ Dextrose) 50 mls @ 100 mls/hr IV Q6 [facility] Last Infusion: 03/10/16 08:03 Dose: Infused Insulin Human Lispro (Humalog) 0 unit SQ [facility] PRN Reason: Protocol Last Admin: 03/10/16 08:03 Dose: Not Given Metoprolol Succinate (Toprol Xl) 25 mg PO DAILY [facility] Last Admin: 03/10/16 08:11 Dose: 25 mg Oxycodone/Acetaminophen (Percocet 5-325 Mg) 1 tab PO Q4HP PRN PRN Reason: Pain Stop: 03/11/16 12:37 Last Admin: 03/10/16 01:57 Dose: 1 tab Simvastatin (Zocor) 20 mg PO [facility] Last Admin: 03/09/16 20:43 Dose: 20 mg Medical - PN: A/P - Time Spent With Patient Total time spent is greater than 50% in coordination of care (as documented) at patient's floor/unit and/or counseling patient: (1) Diabetes mellitus Status: Acute Assessment and plan: resumded diet now, on sliding scale insulin while here will go home on his home regime when stable to go home Current Visit: Yes (2) Hypertension Status: Acute Assessment and plan: BP stable, not all home meds have been resumed will resume Current Visit: Yes (3) Inguinal hernia Status: Acute Assessment and plan: s/p repair Current Visit: No - Narrative A/P Narrative: DVT prophyalxis hep sq Medical - PN: Qual - VTE Deep Vein Thrombosis/Pulmonary Embolism Present on Admission: No
--- NOTE | 2016-03-10 14:50 | Discharge Summary ---
Providers - Providers Patient information: Note initiated : 03/10/16 at 2:47 pm Service Date, if different from initiated Date: [] Patient: Rj Jack 86 y/o M admitted on 03/08/16 for Lower Abd Pain/ Incarcerated Rt Inguinal Hernia . Chief Complaint: [] Date of admission: 03/08/16 Discharge date: 03/10/16 Attending physician: Chrissy Rodriguez iNTERNAL MEDICINE Hospitalization Hospital course: 86-YEAR-OLD MALEWITH HISTORY OF LARGE RIGHT INGUINAL HERNIA WHO PRESENTS WITH INCARCERATION OF COLON AND PARTIAL COLONIC OBSTRUCTION. hEWAS ADMITTED AND UNDERWENT HERNIA REPAIR ON YESTERDAY. hE HAS DONE WELL EXCEPT FOR MILD CONFUSION. hE DOES NOT HAVE MUCH ECCHYMOSIS OR SWELLING IN SPITE OF REMAINING ON HIS pLAVIX. hE HAS STABLE FOR DISCHARGE. hE WILL BE MAINTAINED ON lEVAQUIN BY MOUTH 5 DAYS AND WILL BE GIVEN OXYCODONE TO TAKE 1-2 DAILY NEEDED FOR PAIN. Discharge diagnosis: NCARCERATED RIGHT INGUINAL HERNIA Secondary discharge diagnosis: ARTIAL COLONIC OBSTRUCTION Reason for admission: INCARCERATED RIGHT INGUINAL HERNIA Procedures: IGHT INGUINAL HERNIA REPIR WITH MESH Complications: NONE Exam Temp Pulse Resp BP Pulse Ox 99.1 F 87 18 164/72 94 03/10/16 12:00 03/10/16 12:00 03/10/16 12:00 03/10/16 12:00 03/10/16 12:00 - General physical appearance well developed, well nourished, no distress, chronically ill, other (MILD CONFUSION BUT OTHERWISE IN NO ACUTE DISTRESS) - Eyes PERRL, normal ocular movement - ENT normal pinna, normal nares, normal mucosa, no hearing loss, no congestion - Head Head exam IM: Present: atraumatic, normocephalic - Neck no masses, no bruits, trachea midline, no lymphadectomy, no venous distension - Cardiovascular Cardiovascular exam IM: Present: normal rate and rhythm - Respiratory normal expansion, normal respiratory effort, clear to percussion, clear to auscultation - Abdomen Abdomen: Present: soft (ABDOMEN NONDISTENDED WITH GOOD ACTIVE BOWEL SOUNDS), non tender, bowel sounds Hernia: Present: none, inguinal (MILD ECCHYMOSIS OF HERNIA REPAIR SITE) - Genitourinary Present: normal penis with no external lesions - Integumentary Present: no rash, no growths, no abnormal pigmentation - Neurologic Present: normal coordination, normal sensation - Musculoskeletal Present: other (UNSTABLE GAIT AND STANCE DUE TO WEAKNESS) - Psychiatric Present: other (MILD CONFUSION BUT EASILY REORIENTED) Discharge Plan - Patient/Caregiver Discharge Instructions Activity: increase activity as tolerated Diet: Regular Diet Prescriptions: Levofloxacin [Levaquin] 500 mg PO DAILY #7 tablet oxyCODONE/APAP [Percocet 5-325 mg] 1 tab PO Q4H PRN #20 tablet PRN Reason: Pain - Follow up Plan Follow up with: Richard Porter MD [Primary Care Provider] - (Please schedule a follow up appointment with your primary care physician as needed.) Chrissy Rodriguez MD [Physician] - 03/17/16 1:30 pm Disposition: Home, Self-Care Prognosis: Good Rehab Potential: Fair I certify that the patient requires SNF services.: No Overall status at discharge: patient is progressing back to baseline Pending Studies Resuscitation Status Full Code Diet Consistent Carbohydrate Diet Start MonMar 09 Dinner Clopidogrel Bisulfate (Plavix) 75 mg PO DAILY [facility] Last Admin: 03/10/16 08:11 Dose: 75 mg Diagnostic Test (Pha) (Accu-Chek) 1 each FS ACHS [facility] Last Admin: 03/10/16 12:54 Dose: 1 each Admin: 03/10/16 08:02 Dose: 1 each Admin: 03/09/16 20:47 Dose: 1 each Admin: 03/09/16 16:44 Dose: 1 each Famotidine (Pepcid) 20 mg IV HS [facility] Last Admin: 03/09/16 20:40 Dose: 20 mg Hydromorphone HCl (Dilaudid) 1 mg IV Q2HP PRN PRN Reason: Pain Last Admin: 03/09/16 17:05 Dose: 1 mg Dextrose/Sodium Chloride (Dextrose 5%-1/2ns Iv Solution) 1,000 mls @ 75 mls/hr IV .[id number] [facility] Last Infusion: 03/10/16 11:48 Dose: 0 mls/hr Infusion: 03/10/16 08:03 Dose: 20 mls/hr Admin: 03/10/16 05:27 Dose: 75 mls/hr Infusion: 03/10/16 04:11 Dose: 75 mls/hr Admin: 03/09/16 14:51 Dose: 75 mls/hr Piperacillin Sod/Tazobactam (Sod 2.25 gm/ Dextrose) 50 mls @ 100 mls/hr IV Q6 [facility] Last Admin: 03/10/16 12:54 Dose: 100 mls/hr Infusion: 03/10/16 08:03 Dose: 0 mls/hr Admin: 03/10/16 06:17 Dose: 100 mls/hr Infusion: 03/10/16 00:15 Dose: 100 mls/hr Admin: 03/09/16 23:45 Dose: 100 mls/hr Infusion: 03/09/16 18:13 Dose: 0 mls/hr Admin: 03/09/16 16:44 Dose: 100 mls/hr Insulin Human Lispro (Humalog) 0 unit SQ ACHS [facility] PRN Reason: Protocol Last Admin: 03/10/16 12:54 Dose: Admin: 03/10/16 08:03 Dose: Admin: 03/09/16 20:51 Dose: 4 unit Admin: 03/09/16 17:01 Dose: Not Given Metoprolol Succinate (Toprol Xl) 25 mg PO DAILY [facility] Last Admin: 03/10/16 08:11 Dose: 25 mg Admin: 03/09/16 15:35 Dose: 25 mg Oxycodone/Acetaminophen (Percocet 5-325 Mg) 1 tab PO Q4HP PRN PRN Reason: Pain Stop: 03/11/16 12:37 Last Admin: 03/10/16 01:57 Dose: 1 tab Simvastatin (Zocor) 20 mg PO HS [facility] Last Admin: 03/09/16 20:43 Dose: 20 mg Shift Summary 03/10/16 03:52 Shift Summary by Maryjane Wise Slept off & on thru the night. Voided small amounts about every 2 hours. Abdominal dressing changed d/t it leaking on the side. Removed a large clot from around the viet at that time. Incision still oozing, but not as much as earlier. Received one pain pill for c/o sharp pain in groin area when he was standing at the bedside to void. Pt is confused and forgetful. Keeps thinking he's at his home, not the hospital. Does reorient well. Bed alarm is on d/t this forgetfulness. HR has been sinus most of the night. Initialized on 03/10/16 03:52 - END OF NOTE
[2016-03-10] MEDS ORDERED: CILOSTAZOL 100 MG TABLET PO SCH (17:00)
[2016-03-11] MEDS ORDERED: HYDROCHLOROTHIAZIDE 25 MG TABLET PO SCH (09:00)
--- NOTE | 2016-03-14 12:26 | Operative Note ---
DATE OF OPERATION: 03/09/2016 PREOPERATIVE DIAGNOSIS: Incarcerated right inguinal hernia. POSTOPERATIVE DIAGNOSIS: Incarcerated right inguinal hernia. PROCEDURE: Right inguinal hernia repair with mesh. SURGEON: Chrissy Rodriguez MD. FINDINGS: Large incarcerated hernia with large indirect sac and large lipoma of the cord. DESCRIPTION OF PROCEDURE: Under general anesthesia, the patient's lower abdomen and genitalia were prepped and draped in the sterile field. A curvilinear incision was made. The incision extended through the subcutaneous tissue to the aponeurosis. The aponeurosis was opened in the line of its fibers. A very large hernia sac with a segment of colon was encountered. With anesthesia, I was able to dissect the neck of the sac and enlarge the internal ring. The colon was then pushed back into the peritoneal cavity. There was significant edema of the sac. There was a very large lipoma of the cord. This was dissected away from the cord back to the internal ring. It was clamped and excised. It was discarded. The tissue was controlled with two ties of 3-0 Vicryl. It was pushed back into the internal ring. The large sac was then from the cord back to the internal ring. It was extremely large, and the defect was very large. Two mesh plugs were fashioned and were sutured to each other using interrupted 0 Prolene. They were then placed in the internal ring and were sutured circumferentially using 0 Prolene. Once this was done, the onlay patch was placed. It was sutured circumferentially using running locking 0 Prolene. The wings of the graft were sutured around the cord at the internal ring to get total closure of the inguinal floor at this area. The aponeurosis was closed with running 2-0 Vicryl. Subcutaneous tissue was closed with running 2-0 Monocryl. Skin was closed with viet. Tegaderm dressing was placed. The patient tolerated the procedure well. He was awakened, transferred to a bed and taken to the postanesthetic care unit in stable, satisfactory condition. LCS:branden Job ID: [id number] Doc ID: [id number] Chrissy Rodriguez M.D.
== END 2016-03-10 15:30 | disposition home or self-care (01) ==
LOC: ED 11:25 → MEDSUR 11:25 → ICU 03-09 13:38
PROVIDERS: ADMIT Family Medicine Adult Medicine; ATTEND Family Medicine Adult Medicine

== ENCOUNTER 2016-10-22 10:34 | Inpatient (IN) ==
[2016-10-22] MEDS ORDERED: HYDROmorphone 2 MG/ML SYRINGE ONE (10:49)
--- NOTE | 2016-10-22 10:54 | Emergency Department Note ---
Fall HPI - General Chief Complaint: Fall Stated Complaint: Fall/right hip Time Seen by Provider: 10/22/16 10:40 Source: patient Mode of arrival: EMS Limitations: no limitations - History of Present Illness HPI Narrative: 86-year-old male presents with right hip pain after fall. He is brought in by EMS. He states he was working on a ladder and reached up to grab something and fell backwards. He fell approximately 6 feet. He states he did hit his head. He denies loss of consciousness. He denies head or neck pain. He states he has right hip pain. He states when he is laying down he does not have much pain and he has some pain in his right elbow. He has a small abrasion on his right elbow. He takes Plavix and he has a history of stroke. He denies back pain. He denies confusion or vision changes. When I am in there he is asking who is in and do his surgery and he wants a list of surgeons so he can pick out the surgeon he wants for his hip fracture repair. He last ate this morning - Related Data Home Medications Medication Instructions Recorded Confirmed Acetaminophen [Tylenol] 1,000 mg PO BID 02/27/15 03/17/16 Cholecalciferol (Vitamin D3) 2,000 unit PO DAILY 02/27/15 03/17/16 [Vitamin D3] Docusate Sodium [Colace] 100 mg PO DAILY 02/27/15 03/17/16 Famotidine [Pepcid] 20 mg PO DAILY 02/27/15 03/17/16 Hydrochlorothiazide 50 mg PO DAILY 02/27/15 03/17/16 Lovastatin 40 mg PO ACB 02/27/15 03/17/16 Metoprolol Tartrate [Lopressor] 25 mg PO DAILY 02/27/15 03/17/16 Multivitamin [Multi-Day Vitamins] 1 each PO DAILY 02/27/15 03/17/16 Mv-Mn/FA/Vit K1/Lycop/Lut/Zeax 1 each PO DAILY 02/27/15 03/17/16 [Ocuvite Eye + Multi Tablet] glipiZIDE [Glucotrol Xl] 5 mg PO QAMAC 02/27/15 03/17/16 Previous Rx's Medication Instructions Recorded Clopidogrel [Plavix] 75 mg PO DAILY #30 tab 03/02/15 Levofloxacin [Levaquin] 500 mg PO DAILY #7 tab 03/10/16 oxyCODONE/APAP [Percocet 5-325 mg] 1 tab PO Q4H PRN #20 tab 03/10/16 oxyCODONE/APAP [Percocet 5-325 mg] 1 tab PO Q4HP PRN #40 tab 03/10/16 Allergies Allergy/AdvReac Type Severity Reaction Status Date / Time codeine AdvReac Intermediate Psychosis Verified 03/17/16 11:22 morphine AdvReac Intermediate Psychosis Verified 03/17/16 11:22 Review of Systems All systems ED: reviewed and negative except as stated. Fall PMH - Past Medical History Medical history: Reports: arthritis, coronary artery disease, CVA, diabetes, other (apnea BiPAP dependent) Surgical history ED: Reports: orthopedic, other - Social History smoking status: Former smoker Alcohol use: Reports: Rarely Drug use: Reports: none Physical Exam right hip is shortened and externally rotated. No bruising noted. Sensation normal. Unable to assess ROM due to pain. Normal pulses distally. Right elbow shows abrasion, Nontender, Full ROM. No deformity Bilateral feet and ankles show normal inspection, full ROM, nontender to palpation - General Limitations: no limitations General appearance: alert, in no apparent distress - Head Head exam: atraumatic, normal inspection - Eye Eye exam: Present: normal appearance, PERRL, EOMI. Absent: conjunctival injection - Neck Neck exam: Present: normal inspection, full ROM. Absent: tenderness, lymphadenopathy - Chest Chest inspection: Present: normal inspection, symmetric chest wall rise - Respiratory Respiratory exam: Present: normal lung sounds bilaterally - Cardiovascular Cardiovascular exam: Present: regular rate, normal heart sounds - Abdominal Exam Abdominal exam: Present: soft, normal bowel sounds. Absent: tenderness - Neurological Exam Neurological exam: Present: alert, oriented X3, CN II-XII intact - Psychiatric Psychiatric exam: Present: normal affect, normal mood - Skin Skin exam: Present: warm, dry, intact Course Course Narrative: He will be admitted to the Hospitalist and Beni plans to do surgery tomorrow or then next day Vital Signs Temperature 96.8 F L 10/22/16 10:35 Pulse Rate 71 10/22/16 10:35 Respiratory Rate 16 10/22/16 10:35 Blood Pressure 130/76 10/22/16 10:35 Pulse Oximetry (%) 96 10/22/16 10:35 Temperature 96.8 F L 10/22/16 12:58 Pulse Rate 70 10/22/16 12:58 Respiratory Rate 16 10/22/16 12:58 Blood Pressure 145/69 10/22/16 12:58 Pulse Oximetry (%) 98 10/22/16 12:58 Fall - Lab Data Result diagrams: 10/22/16 11:44 10/22/16 11:44 Lab Results 10/22/16 10/22/16 10/22/16 Range/Units 11:44 11:44 11:46 WBC 10.8 (4.5-11.0) K/mcL RBC 3.57 L (4.50-5.90) M/mcL Hgb 11.5 L (13.5-16.5) g/dL Hct 34.4 L (41.0-55.0) % MCV 96.3 (80.0-100.0) fL MCH 32.1 (26.0-34.0) pg MCHC 33.4 (31.0-36.0) g/dL RDW 13.8 (11.5-14.5) % Plt Count 225 (140-440) K/mcL MPV 8.7 (7.4-10.4) fL Gran % 78.9 H (38.0-78.0) % Lymph % (Auto) 9.9 L (15.5-49.0) % [place] % (Auto) 9.3 (1.0-12.0) % Eos % (Auto) 1.5 (0.0-7.0) % Baso % (Auto) 0.4 (0.0-2.0) % Gran # 8.5 H (1.8-8.0) K/mcL Lymph # (Auto) 1.1 L (1.5-4.8) K/mcL [place] # (Auto) 1.0 H (0.1-0.9) K/mcL Eos # (Auto) 0.2 (0.0-0.7) K/mcL Baso # (Auto) 0 (0.0-0.3) K/mcL POC PT 14.6 H (11.9-14.5) sec PT 15.6 H (11.9-14.5) sec POC INR 1.2 (0.9-1.2) INR 1.2 H (0.9-1.1) Sodium 142 (133-145) mmol/L Potassium 3.5 (3.3-5.1) mmol/L Chloride 101 (96-108) mmol/L Carbon Dioxide 27 (22-30) mmol/L Anion Gap 14.0 (8-16) BUN 46 H (8-23) mg/dl Creatinine 1.5 H (0.7-1.2) mg/dl GFR Calculation 42 Glucose 124 H (70-105) mg/dL Calcium 9.3 (8.6-10.4) mg/dl Total Bilirubin 0.7 (0.0-1.0) mg/dL AST 13 (0-37) U/l ALT 7 (0-40) U/l Alkaline Phosphatase 68 (39-117) U/L Total Protein 7.1 (5.9-8.4) gm/dL Albumin 4.3 (3.2-5.2) gm/dL Globulin 2.8 (2.2-3.7) gm/dL Albumin/Globulin Ratio 1.5 (1.0-2.3) Urine Color Urine Appearance Urine pH (5.0-9.0) Ur Specific [place] (1.000-1.035) Urine Protein (NEG) mg/dL Urine Glucose (UA) (NEG) mg/dL Urine Ketones (NEG) mg/dL Urine Occult Blood (<0.03) mg/dL Urine Nitrate (NEG) Urine Bilirubin (NEG) mg/dL Urine Urobilinogen (NEG) mg/dL Ur Leukocyte Esterase (NEG) /uL Urine RBC (0-1) /hpf Urine WBC (0-4) /hpf Ur Squamous Epith Cells (0-4) /hpf Urine Bacteria (0) /hpf Hyaline Casts (0-2) /lpf Urine Mucus (0) /hpf Ur Culture Indicated? 10/22/16 Range/Units 12:15 WBC (4.5-11.0) K/mcL RBC (4.50-5.90) M/mcL Hgb (13.5-16.5) g/dL Hct (41.0-55.0) % MCV (80.0-100.0) fL MCH (26.0-34.0) pg MCHC (31.0-36.0) g/dL RDW (11.5-14.5) % Plt Count (140-440) K/mcL MPV (7.4-10.4) fL Gran % (38.0-78.0) % Lymph % (Auto) (15.5-49.0) % [place] % (Auto) (1.0-12.0) % Eos % (Auto) (0.0-7.0) % Baso % (Auto) (0.0-2.0) % Gran # (1.8-8.0) K/mcL Lymph # (Auto) (1.5-4.8) K/mcL [place] # (Auto) (0.1-0.9) K/mcL Eos # (Auto) (0.0-0.7) K/mcL Baso # (Auto) (0.0-0.3) K/mcL POC PT (11.9-14.5) sec PT (11.9-14.5) sec POC INR (0.9-1.2) INR (0.9-1.1) Sodium (133-145) mmol/L Potassium (3.3-5.1) mmol/L Chloride (96-108) mmol/L Carbon Dioxide (22-30) mmol/L Anion Gap (8-16) BUN (8-23) mg/dl Creatinine (0.7-1.2) mg/dl GFR Calculation Glucose (70-105) mg/dL Calcium (8.6-10.4) mg/dl Total Bilirubin (0.0-1.0) mg/dL AST (0-37) U/l ALT (0-40) U/l Alkaline Phosphatase (39-117) U/L Total Protein (5.9-8.4) gm/dL Albumin (3.2-5.2) gm/dL Globulin (2.2-3.7) gm/dL Albumin/Globulin Ratio (1.0-2.3) Urine Color Yellow Urine Appearance Clear Urine pH 5.0 (5.0-9.0) Ur Specific [place] 1.019 (1.000-1.035) Urine Protein Neg (NEG) mg/dL Urine Glucose (UA) Negative (NEG) mg/dL Urine Ketones Neg (NEG) mg/dL Urine Occult Blood 0.03 A (<0.03) mg/dL Urine Nitrate Neg (NEG) Urine Bilirubin Neg (NEG) mg/dL Urine Urobilinogen Neg (NEG) mg/dL Ur Leukocyte Esterase Neg (NEG) /uL Urine RBC 2 H (0-1) /hpf Urine WBC 1 (0-4) /hpf Ur Squamous Epith Cells 0 (0-4) /hpf Urine Bacteria 0 (0) /hpf Hyaline Casts 1 (0-2) /lpf Urine Mucus Few (0) /hpf Ur Culture Indicated? No Disposition Pt seen by [employer] HELPER/PA only: No Clinical Impression: Fracture of hip Disposition: Xfer As Inpt ([facility]) Condition: Fair
--- NOTE | 2016-10-22 11:26 | Cat Scan Report ---
CLINICAL INFORMATION: Trauma on Plavix COMPARISON: 02/27/2015 TECHNIQUE: 2.5 mm helical slices were obtained in the skull base to vertex. Following reconstruction, axial reformatted images were reviewed at bone and parenchymal windows. FINDINGS: The ventricles, sulci, fissures, and cisterns are symmetrically enlarged compatible with moderate age-related atrophy - no extra-axial fluid collections or masses appreciated. Scattered chronic ischemic changes noted in cerebral white matter. Moderate size remote cortical-based infarct in the posterior right parietal lobe, small remote cortical-based infarct in the left occipital lobe and multiple small and lacunar infarcts in the left cerebellum are seen - as before. There is no acute cerebral hemorrhage, mass effect or edema. Bone windows show no osseous abnormality IMPRESSION: Scattered remote infarcts moderate atrophy and chronic ischemic changes in the cerebral white matter also stable from previous study. No intracerebral hemorrhage or other acute finding. Interpreted and Authenticated by: Richard Barros 10/22/16
--- NOTE | 2016-10-22 11:33 | XRay Report ---
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 There is excess lateral canting of the prosthetic acetabulum as previously seen. No evidence of loosening or infection. Small amounts of heterotopic ossification seen in the superior left capsular region. There is mild degenerative change in both SI joints.] Right SI joint shows only minimal degenerative change. The right femoral neck is foreshortened when compared to prior study: there is likely an impacted subcapital fracture of the right hip IMPRESSION: Probable impacted subcapital fracture of the right hip. Consider pelvic CT for better visualization unless there is strong clinical support for hip fracture Interpreted and Authenticated by: Richard Barros 10/22/16
--- NOTE | 2016-10-22 11:34 | XRay Report ---
CLINICAL INFORMATION: Trauma COMPARISON: 03/08/2016 FINDINGS: Heart size, mediastinum and pulmonary vessels are normal. Minor bibasilar atelectasis noted. No effusions. Chronic elevation right diaphragm seen - as before IMPRESSION: No posttraumatic change. Minor basilar atelectasis. Chronic elevation right diaphragm Interpreted and Authenticated by: Richard Barros 10/22/16
[2016-10-22] MEDS ORDERED: HYDROmorphone 2 MG/ML SYRINGE IV SCH (12:00)
[2016-10-22 12:28] LABS: Basophils # (Auto) 0 K/mcL (0.0-0.3); Basophils % (Auto) 0.4 % (0.0-2.0); Eosinophils # (Auto) 0.2 K/mcL (0.0-0.7); Eosinophils % (Auto) 1.5 % (0.0-7.0); Granulocytes % (Auto) 78.9 % (38.0-78.0); Lymphocytes # (Auto) 1.1 K/mcL (1.5-4.8); Lymphocytes % (Auto) 9.9 % (15.5-49.0); Mean Cell Volume 96.3 fL (80.0-100.0); Mean Corpuscular HGB Conc 33.4 g/dL (31.0-36.0); Mean Corpuscular Hemoglobin 32.1 pg (26.0-34.0); Monocytes % (Auto) 9.3 % (1.0-12.0); Platelet Count 225 K/mcL (140-440); RBC 3.57 M/mcL (4.50-5.90); Red Cell Distribution Width 13.8 % (11.5-14.5)
[2016-10-22 12:48] LABS: ALT/SGPT 7 U/l (0-40); Albumin 4.3 gm/dL (3.2-5.2); Albumin/Globulin Ratio 1.5 (1.0-2.3); Alkaline Phosphatase 68 U/L (39-117); Blood Urea Nitrogen 46 mg/dl (8-23)
[2016-10-22 12:58] LABS: Appearance,Urine CLEAR; Bacteria,Urine 0 /hpf (0); Bilirubin,Urine NEG (NEG); Color,Urine YELLOW; Glucose,Urine (UA) NEGATIVE (NEG); Leukocyte Esterase,Urine NEG /uL (NEG); Mucus,Urine FEW /hpf (0); Nitrate,Urine NEG (NEG); Protein,Urine NEG (NEG); Specific Gravity,Urine 1.019 (1.000-1.035); Urine Blood 0.03 mg/dL (<0.03); Urine Hyaline Cast 1 /lpf (0-2); Urine RBC 2 /hpf (0-1); Urine Squamous Epithelial Cell 0 /hpf (0-4); Urine WBC 1 /hpf (0-4); Urobilinogen,Urine NEG (NEG)
[2016-10-22] MEDS ORDERED: 0.9 % SODIUM CHLORIDE 1,000 ML IV SCH (13:16)
[2016-10-22] MEDS ORDERED: DEXTROSE 31 GM ORAL.SUSP PO PRN (13:16)
[2016-10-22] MEDS ORDERED: ACETAMINOPHEN 325 MG TABLET PO PRN (13:16)
[2016-10-22] MEDS ORDERED: MAGNESIUM SULFATE 2 GM/50 ML BAG IV PRN (13:16)
[2016-10-22] MEDS ORDERED: ONDANSETRON 4 MG/2 ML VIAL IV PRN (13:16)
[2016-10-22] MEDS ORDERED: MAGNESIUM HYDROXIDE 30 ML ORAL.SUSP PO PRN (13:16)
[2016-10-22] MEDS ORDERED: DEXTROSE 50% 50 ML VIAL IV PRN (13:16)
[2016-10-22] MEDS ORDERED: guaiFENesin/CODEINE 10 ML UDC PO PRN (13:16)
[2016-10-22] MEDS ORDERED: ACETAMINOPHEN 1,000 MG/100 ML BOTTLE IV PRN (13:16)
[2016-10-22] MEDS ORDERED: HYDROmorphone 2 MG/ML SYRINGE IV PRN (13:16)
[2016-10-22] MEDS ORDERED: POTASSIUM CHLORIDE 20 MEQ PACKET PO PRN (13:16)
[2016-10-22] MEDS ORDERED: traZODone HCL 50 MG TABLET PO PRN (13:16)
[2016-10-22] MEDS ORDERED: 0.9 % SODIUM CHLORIDE 10 ML SYRINGE IV SCH (14:00)
--- NOTE | 2016-10-22 14:14 | Orthopedic Consult Note ---
History of Present Illness - HPI Patient information: Note initiated : 10/22/16 at 2:06 pm Service Date, if different from initiated Date: [] Patient: Rj Jack 86 y/o M admitted on 10/22/16 for Fall/right hip. Chief Complaint: right hip pain Patient is an 86 old man who fell off a ladder earlier today while pruning bushes. He reports landing on his back and hip as well as his right arm. He was down on the ground for approximately 30 minutes before an ambulance escorted him to the ER. He denies hitting his head at the time as well as CP, SOB, LOC, dizziness or visual changes. Currently he reports minimal pain in his right hip , mostly with movement. He denies pain in his back, neck, head, or other extremities including the right arm he fell on. He denies numbness or tingling in any extremity. He has a PMH of CVA, CAD, diabetes, arthritis and sleep apnea. He is a former smoker and rarely drinks alcohol. He has a PSH of SOL[place] in his left hip. Review of Systems All systems PM: reviewed and no additional remarkable complaints except as stated Constitutional: as per HPI Nose, mouth and throat: no dizziness, no facial pain Cardiovascular: as per HPI, no chest pain, no leg edema Respiratory: as per HPI, no pain on inspirtation Gastrointestinal: no abdominal pain Musculoskeletal: as per HPI, abnormal gait, limited range of motion, no back pain, no joint swelling, no muscle cramps, no muscle weakness, no neck pain, no numbness, no radiating pain into limb, no tingling Musculoskeletal: right: hip pain Integumentary: other (small abrasion over right elbow joint) Neurological: confusion, memory loss, weakness, other (left sided weakness), no headache(s), no loss of vision, no numbness, no paresthesias, no radicular pain , no syncope Psychiatric: as per HPI Medications and Allergies Home Medications Medication Instructions Recorded Confirmed Type Acetaminophen [Tylenol] 1,000 mg PO BID 02/27/15 03/17/16 History Cholecalciferol (Vitamin D3) 2,000 unit PO DAILY 02/27/15 03/17/16 History [Vitamin D3] Docusate Sodium [Colace] 100 mg PO DAILY 02/27/15 03/17/16 History Famotidine [Pepcid] 20 mg PO DAILY 02/27/15 03/17/16 History Hydrochlorothiazide 50 mg PO DAILY 02/27/15 03/17/16 History Lovastatin 40 mg PO ACB 02/27/15 03/17/16 History Metoprolol Tartrate [Lopressor] 25 mg PO DAILY 02/27/15 03/17/16 History Multivitamin [Multi-Day Vitamins] 1 each PO DAILY 02/27/15 03/17/16 History Mv-Mn/FA/Vit K1/Lycop/Lut/Zeax 1 each PO DAILY 02/27/15 03/17/16 History [Ocuvite Eye + Multi Tablet] glipiZIDE [Glucotrol Xl] 5 mg PO QAMAC 02/27/15 03/17/16 History Clopidogrel [Plavix] 75 mg PO DAILY #30 tab 03/02/15 03/17/16 Rx Levofloxacin [Levaquin] 500 mg PO DAILY #7 tab 03/10/16 03/17/16 Rx oxyCODONE/APAP [Percocet 5-325 mg] 1 tab PO Q4H PRN #20 tab 03/10/16 03/17/16 Rx oxyCODONE/APAP [Percocet 5-325 mg] 1 tab PO Q4HP PRN #40 tab 03/10/16 03/17/16 Rx Allergies Allergy/AdvReac Type Severity Reaction Status Date / Time codeine AdvReac Intermediate Psychosis Verified 03/17/16 11:22 morphine AdvReac Intermediate Psychosis Verified 03/17/16 11:22 Physical Examination - Elbow right Location of pain: no pain Stiffness: none Swelling: none Other symptoms OR: none Appearance: other (small abrasion over elbow) Tenderness with palpation: none Full ROM: yes ROM: flexion: normal ROM: extension: normal ROM: supination: normal ROM: pronation: normal - Hip right Gait: other (non weight bearing) Tenderness with palpation: lateral Pain with motion: internal rotation and hip flexion, internal rotation and hip extension, external rotation and hip flexion, external rotation and hip extension, other Assessment and Plan (1) Subcapital fracture of right femur Plan for right hip hemiarthroplasty with Dr. Bazan on 10/23/2016. I had a lengthy discussion with the patient to discuss the surgical fixation options for his hip fracture including percutaneous pinning with screws vs a hemiarthroplasty. We discussed the risks and benefits at length of both procedures and the patient elected to proceed with a right hip hemiarthroplasty tomorrow. We also discussed at the length the benefits and risks of surgical operations. Patient understands the risks and wishes to proceed. No guarantees were made. Status: Acute Qualifiers: Encounter type: initial encounter Fracture type: closed Qualified Code(s) : S72.011A - Unspecified intracapsular fracture of right femur, initial encounter for closed fracture (2) Fracture of hip Status: Acute
--- NOTE | 2016-10-22 16:12 | Internal Med History&Physical ---
Medical - H&P: [facility] Patient information: Note initiated : 10/22/16 at 4:09 pm Service Date, if different from initiated Date: [] Patient: Rj Jack 86 y/o M admitted on 10/22/16 for Fall/right hip. Chief Complaint: [] Chief complaint: fall with Rt hip pain History of present illness: Mr. Jack is a 86 year old M who was in his baseline state of health and sustained a fall off a ladder while he was pruning bushes at home. He was subsequently brought to [facility] ER initial workup was significant for right hip fracture. He was started on pain medications. Orthopedics was consulted. Patient was advised to reevaluate for surgical intervention in the morning. Hospice service was consulted for admission and preoperative risk evaluation. At the time of examination patient is alert oriented. No family members are present. Patient denies lightheadedness dizziness thunderclap headache, fever chills, diarrhea weakness He attributes fall getting off balance. He was otherwise in his baseline state of health. He followed denies chest palpitation vision change, incontinence, unilateral weakness. He carries history of stage III chronic kidney disease along with history of right hemispheric CVA with left-sided weakness. He also carries a history of three-vessel bypass in late . He is currently on dual antiplatelet therapy. Patient has been fairly functional and mobile at baseline and is able to perform activities of daily living. Review of systems A 10 point review of system was performed and is negative except for what is discussed above Medical - H&P: PMH Medical history: history of coronary artery disease status post CABG History of CVA February 2015 hyperlipidemia DM type II Hypertension Surgical history: CABG 96 Pertinent family history: not pertinent Social history: jesus fairly independently Functional capacity: independent ambulation Smoking status: Former smoker Have you smoked in the last 12 months: No Drug use: none Alcohol use: none Medical - H&P: Meds Home Medications Medication Instructions Recorded Confirmed Type Acetaminophen [Tylenol] 1,000 mg PO BID 02/27/15 10/22/16 History Cholecalciferol (Vitamin D3) 1,000 unit PO DAILY 02/27/15 10/22/16 History [Vitamin D3] Docusate Sodium [Colace] 100 mg PO DAILY 02/27/15 10/22/16 History Famotidine [Pepcid] 20 mg PO DAILY 02/27/15 10/22/16 History Hydrochlorothiazide 50 mg PO DAILY 02/27/15 10/22/16 History Lovastatin 40 mg PO ACB 02/27/15 10/22/16 History Metoprolol Tartrate [Lopressor] 25 mg PO DAILY 02/27/15 10/22/16 History Multivitamin [Multi-Day Vitamins] 1 each PO DAILY 02/27/15 10/22/16 History Mv-Mn/FA/Vit K1/Lycop/Lut/Zeax 1 each PO DAILY 02/27/15 10/22/16 History [Ocuvite Eye + Multi Tablet] glipiZIDE [Glucotrol Xl] 5 mg PO QAMAC 02/27/15 10/22/16 History Clopidogrel [Plavix] 75 mg PO DAILY #30 tab 03/02/15 10/22/16 Rx Cilostazol [Pletal] 100 mg PO BID 10/22/16 10/22/16 History diphenhydrAMINE [Benadryl] 25 mg PO HSP PRN 10/22/16 10/22/16 History Allergies Allergy/AdvReac Type Severity Reaction Status Date / Time codeine AdvReac Intermediate Psychosis Verified 03/17/16 11:22 morphine AdvReac Intermediate Psychosis Verified 03/17/16 11:22 Medical - H&P: Exam - Constitutional Vitals: Temp Pulse Resp BP Pulse Ox 97.3 F 70 16 162/82 95 10/22/16 13:01 10/22/16 12:58 10/22/16 13:01 10/22/16 13:01 10/22/16 13:01 General appearance: cooperative, no acute distress, thin Exam: Pupils symmetric reactive Oral cavity dry No ear or nose discharge Head normocephalic/atraumatic neck no lymphadenopathy S1-S2 regular rhythm, Ejection systolic murmur grade 1 Abdomen soft Chest clear to auscultation bilaterally ight lower extremity externally rotated and shortened No cyanosis clubbing or lymphedema Skin no suspicious lesion Psych alert cooperative neuro no new changes,minimal left-sided prior deficits Medical - H&P: Reslt - Labs CBC & Chem 7: 10/22/16 11:44 10/22/16 11:44 Medical - H&P: A/P (1) Subcapital fracture of right femur Current visit: Yes Status: Acute * right hip fracture-admit as inpatient for operative intervention.Dr. Bazan orthopedics consulted.nadine in a.m. * reoperative risk evaluation-ased on RCR I [place] [employer] risk stratification patient would fall under high risk category given history of stroke nd coronary artery disease however there is no evidence of acute decompensated heart failure. Patient is ihd-domngcj-phorlzdrr diabetes but carries history ofstage III chronic kidney disease. most his factors are nonmodifiableand hence patient can proceed with surgery ut will remain high risk surgical candidate for intraoperative and immediate ostoperative complication including acute coronary event/CVA and even . This was discussed withpatient. Furthermore surgery and anesthesia specific risks will be discussed by individual care providers. patient understands the risk involvedand is willing to proceed with surgery. * history of CVA-onPletal/Plavix. Plavix ill be held prior to surgery o minimize risk of bleeding * history of coronary artery disease-ontinue statinBeta yudith * DM type II-ontinue sliding scale insulin. Hold sulfonylurea * history of hypertension continue thiazide/yudith * Full CODE STATUS plan * preoperative risk evaluation as above. No modifiable risk factors. Plavix will be held to minimize risk of intraoperative bleeding * orthopedist consult * other pre-existing medical issues management as above * Await family for further discussion Medical - H&P: Qual - VTE Deep Vein Thrombosis/Pulmonary Embolism Present on Admission: No
--- NOTE | 2016-10-22 16:21 | Cat Scan Report ---
CLINICAL INFORMATION: Trauma with right hip pain COMPARISON: Plain films from 10/16/2016 TECHNIQUE: 2.5 mm helical slices were obtained from the mid ileum through the proximal one third of the femur. Following reconstruction, sagittal, coronal axial reformatted images were processed and reviewed at bone and soft tissue windows.. FINDINGS: There is a mildly comminuted, obliquely oriented fracture extending from the subcapital region posteriorly extending inferiorly through the femoral neck. Minimal impaction is noted. [place] of fracture angulation is approximately 30 degrees anteriorly. The femoral neck is displaced less than 1 cm anteriorly respect to the femoral head. Small right pleural effusion is noted.. IMPRESSION: Acute mildly angulated, minimally displaced fracture involving the subcapital and neck region of the right hip Interpreted and Authenticated by: Richard Barros 10/22/16
--- NOTE | 2016-10-22 16:52 | Transfer Summary ---
Transfer Discharge Sum: Prov Patient information: Note initiated : 10/22/16 at 4:47 pm Service Date, if different from initiated Date: [] Patient: Rj Jack 86 y/o M admitted on 10/22/16 for Fall/right hip. Chief Complaint: [] Date of admission: 10/22/16 13:01 Discharge Date: 10/22/16 Primary care physician: Richard Porter Receiving physician/facility: [facility] Transfer Discharge Sum: Diag - Discharge Diagnosis (1) Subcapital fracture of right femur Status: Acute Transfer Discharge Sum: Med - Medications Active and Home Medications: Home Medications Acetaminophen [Tylenol] 1,000 mg PO BID 02/27/15 [History Confirmed 10/22/16] Cholecalciferol (Vitamin D3) [Vitamin D3] 1,000 unit PO DAILY 02/27/15 [History Confirmed 10/22/16] Docusate Sodium [Colace] 100 mg PO DAILY 02/27/15 [History Confirmed 10/22/16] Famotidine [Pepcid] 20 mg PO DAILY 02/27/15 [History Confirmed 10/22/16] Hydrochlorothiazide 50 mg PO DAILY 02/27/15 [History Confirmed 10/22/16] Lovastatin 40 mg PO ACB 02/27/15 [History Confirmed 10/22/16] Metoprolol Tartrate [Lopressor] 25 mg PO DAILY 02/27/15 [History Confirmed 10/22] Multivitamin [Multi-Day Vitamins] 1 each PO DAILY 02/27/15 [History Confirmed ] Mv-Mn/FA/Vit K1/Lycop/Lut/Zeax [Ocuvite Eye + Multi Tablet] 1 each PO DAILY 03/14 [History Confirmed 10/22/16] glipiZIDE [Glucotrol Xl] 5 mg PO QAMAC 02/27/15 [History Confirmed 10/22/16] Clopidogrel [Plavix] 75 mg PO DAILY #30 tab 03/02/15 [Rx Confirmed 10/22/16] Cilostazol [Pletal] 100 mg PO BID 10/22/16 [History Confirmed 10/22/16] diphenhydrAMINE [Benadryl] 25 mg PO HSP PRN 10/22/16 [History Confirmed 10/22/16 ] Active Medications Acetaminophen (Tylenol) 650 mg PO Q4-6HP PRN PRN Reason: PAIN/FEVER > 101 Dextrose (Dextrose 50%) 0 ml IV UD PRN PRN Reason: Hypoglycemia Diagnostic Test (Pha) (Accu-Chek) 1 each FS ACHS [facility] Last Admin: 10/22/16 14:08 Dose: 1 each Docusate Sodium (Colace) 100 mg PO BID KATELIN Glucose (Insta-Glucose) 15 gm PO PRN PRN PRN Reason: Hypoglycemia Guaifenesin/Codeine Phosphate (Robitussin Ac) 10 ml PO Q4HP PRN PRN Reason: Cough Heparin Sodium (Porcine) (Heparin) 5,000 unit SQ Q12 KATELIN Hydromorphone HCl (Dilaudid) 0 mg IV Q4HP PRN PRN Reason: Pain Magnesium Sulfate (Magnesium Sulfate) 2 gm in 50 mls @ 50 mls/hr IV UD PRN PRN Reason: MG = or < 1.7 Sodium Chloride (Sodium Chloride 0.9%) 1,000 mls @ 50 mls/hr IV .Q20H [facility] Stop: 10/25/16 01:15 Last Admin: 10/22/16 14:04 Dose: 50 mls/hr Acetaminophen (Ofirmev) 1,000 mg in 100 mls @ 200 mls/hr IV Q6HP PRN PRN Reason: PAIN/FEVER > 101 Insulin Human Lispro (Humalog) 0 unit SQ ACHS [facility] PRN Reason: Protocol Iron Carb/Multivit/Tequesta/Folic Acid (Multivitamin W/Minerals) 1 tab PO DAILY [facility] Magnesium Hydroxide (Milk Of Magnesia) 30 ml PO HSP PRN PRN Reason: Constipation Ondansetron HCl (Zofran) 4 mg IV Q4-6HP PRN PRN Reason: Nausea And Vomiting Potassium Chloride (Klor-Con) 40 meq PO DAILYP PRN PRN Reason: K+ < 3.5 Senna/Docusate Sodium (Senna Plus Tablet) 1 tab PO HS [facility] Sitagliptin Phosphate (Januvia) 100 mg PO DAILY [facility] Sodium Chloride (Saline Flush) 10 ml IV Q8 [facility] Last Admin: 10/22/16 14:02 Dose: Not Given Trazodone HCl (Desyrel) 50 mg PO HSP PRN PRN Reason: Insomnia Transfer Discharge Sum: Hosp Hospital course: Mr. Jack is a 86 year old M who was brought to [facility] ER after sustaining right hip fracture this morning secondary to fall off the ladder. Patient Was due for operative intervention by orthopedics in the morning however family requested the patient be transferred to tertiary Center as per family they were advised by Dr. Alejo orth[facility] at [facility] that for any future surgical intervention he should have a blog writer on board due to history of coronary artery disease. our facility lacks a blog writer and hence the need for transfer. Case was subsequently discussed with Dr. Bazan who as in agreement with patient's transfer based on family wishes. Case was discussed with Dr. Estrada [facility] who was willing to consult by Dr. [facility] will be admitting the patient. patient will be transferred via ground ambulance TRANSFER DIAGNOSIS * Right hip fracture * history of CVA * history of coronary artery disease * DM type II * CKD stage III * history of hypertension - Time Spent with Patient Total time spent providing and/or coordinating transfer services: Greater than 30 minutes Transfer Discharge Sum: Exam - Constitutional Vitals: Intake and Output 10/22/16 10/22/16 10/22/16 05:59 13:59 21:59 Intake Total 180 / 180 Balance 180 / 180 Intake: Oral 180 / 180 Other: Meal Dinner Percent of Meal Consumed 100% Transfer Discharge Sum: Data Procedures and tests throughout hospitalization: Pending Orders 10/22/16 14:11 Consent for Procedure ONCE 10/22/16 Lunch Consistent Carbohydrate Diet 10/23/16 Breakfast NPO after Midnight Diet Transfer Discharge Sum: A/P - Problem Maintenance (1) Subcapital fracture of right femur Status: Acute Qualifiers: Encounter type: initial encounter Fracture type: closed Qualified Code(s) : S72.011A - Unspecified intracapsular fracture of right femur, initial encounter for closed fracture - Plan Functional capacity at transfer: bed bound Overall status at transfer: patient is not back to baseline Disposition: Xfer [facility] Quality Measure Queries - VTE Deep Vein Thrombosis/Pulmonary Embolism Present on Admission: No
[2016-10-22] MEDS ORDERED: INSULIN LISPRO 1 UNIT/0.01 ML UNIT SQ SCH (17:00)
[2016-10-22] MEDS ORDERED: SENNOSIDES/DOCUSATE SODIUM 1 TAB TABLET PO SCH (21:00)
[2016-10-22] MEDS ORDERED: DOCUSATE SODIUM 100 MG CAPSULE PO SCH (21:00)
--- NOTE | 2016-10-23 02:16 | Emergency Department Note ---
ED Note Addendum Note Addendum: I saw this patient in conjunction with Martha Baker. I agree with her documentation evaluation and management
[2016-10-23] MEDS ORDERED: MULTIVIT,THER IRON,CA,FA & MIN 1 TABLET PO SCH (09:00)
[2016-10-23] MEDS ORDERED: sitaGLIPtin 100 MG TABLET PO SCH (09:00)
[2016-10-23] MEDS ORDERED: HEPARIN 5,000 UNIT/ML VIAL SQ SCH (21:00)
== END 2016-10-22 18:44 | disposition short-term general hospital (02) | DRG 536 ==
LOC: ED 10:34 → MEDSUR 13:01
PROVIDERS: ADMIT Internal Medicine; ATTEND Internal Medicine